=== PATIENT | male | born 1990 | race Two or more races ===

== ENCOUNTER 2019-04-29 21:58 | Emergency (ER) | payer SELFPAY ==
[~2019-04-29] VITALS: Ht 182.9 cm; Wt 62.3 kg
--- NOTE | 2019-04-29 22:21 | NUR ---
PT STATED HE HAS HAD TROUBLE BREATHING INTERMITTENTLY X YEARS. PT STATED IT RESOLVES WHEN HE BURPS. STATED WAS COUGHING UP GREEEN SPUTUM AND MINIMAL BLOOD. MONITORS APPLIED, SIDERAILS UP X2, CALL LIGHT WITHIN REACH
[2019-04-29] MEDS ORDERED: MAALOX/HYOSCYAMINE/LIDOCAINE 45 ML BTL ONE (22:26)
[2019-04-29] MEDS ORDERED: ALBUTEROL/IPRATROPIUM 2.5MG/0.5MG, 3 ML ONE (22:28)
[2019-04-29] MEDS ORDERED: MAALOX/HYOSCYAMINE/LIDOCAINE 45 ML BTL PO ONE (22:30)
[2019-04-29] MEDS ORDERED: ALBUTEROL/IPRATROPIUM 2.5MG/0.5MG, 3 ML NPPB ONE (22:30)
--- NOTE | 2019-04-29 22:30 | NUR ---
PT MEDICATED PER DEC. RT AT BEDSIDE FOR RESP T/X
[2019-04-29 22:42] VITALS: BP 123/79
--- NOTE | 2019-04-29 22:54 | NUR ---
REPORT GIVEN TO GARLAND CHUNG
== END 2019-04-30 00:09 | disposition home or self-care (01) ==
LOC: ED 04-30 00:03
DX: J45.21 Mild intermittent asthma with (acute) exacerbation (principal); J20.8 Acute bronchitis due to other specified organisms; F17.210 Nicotine dependence, cigarettes, uncomplicated
CPT/HCPCS: 71046; 93005; 94640; 99283; 99406; J7512; J7620